=== PATIENT | female | born 2000 | race Caucasian/White ===

== ENCOUNTER 2022-11-21 11:34 | Emergency (ER) | payer OTHER | END 2022-11-21 13:23 | disposition home or self-care (01) | LOC: CSHERS 11:34 | DX: O36.0139 Maternal care for anti-D [Rh] antibodies, third trimester, other fetus (principal); Z3A.30 30 weeks gestation of pregnancy | CPT/HCPCS: 86900; 86901; 90384; 96372; 99283 ==